=== PATIENT | male | born 1955 | race African-American/Black ===

== ENCOUNTER 2025-03-24 10:30 | Emergency (ER) | payer SELFPAY ==
[~2025-03-24] VITALS: Ht 177.8 cm; Wt 84.0 kg
[2025-03-24 10:35] VITALS: BP 168/87; PULSE 85; RESP 18; TEMP 98; O2SAT 95
== END 2025-03-24 11:32 | disposition left against medical advice (07) ==
LOC: ER 10:30
DX: M25.561 Pain in right knee (principal); Z53.21 Procedure and treatment not carried out due to patient leaving prior to being seen by health care provider